=== PATIENT | female | born 1955 | race Caucasian/White ===

== ENCOUNTER 2019-06-22 05:01 | Emergency (ER) | payer BC ==
[~2019-06-22] VITALS: Ht 154.9 cm; Wt 65.3 kg
[2019-06-22 05:04] VITALS: BP 122/81
--- NOTE | 2019-06-22 05:09 | NUR ---
PT AMBULATED TO BED #7
[2019-06-22] MEDS ORDERED: KETOROLAC 60 MG/2 ML VIAL IM ONE (05:20)
--- NOTE | 2019-06-22 05:22 | NUR ---
64 Y/O C/O FREED, N,V, X WEDNESDAY. HAD 4 VOMITTING EPISODES TOTAL. PT RATES FREED 01/10 AND DESCRIBES IT PRESSURE, AND PULSATING. A & O X4. PERRLA 3MM BRISK. STEADY GAIT. ABD IS SOFT, ROUND, NONTENDER, ACTIVE BS. VSS. NKA. PMH: BREAST CANCER.
--- NOTE | 2019-06-22 05:22 | NUR ---
DR ROYAL AT BEDSIDE TO EVAL PT.
--- NOTE | 2019-06-22 05:22 | NUR ---
PMH: RT LYPHM NODE REMOVAL. NO BLOOD DRAWS OR BP ON RT ARM.
[2019-06-22 06:33] VITALS: BP 107/70
== END 2019-06-22 06:33 | disposition home or self-care (01) ==
LOC: MED 05:01
DX: R51 Headache (principal); R03.0 Elevated blood-pressure reading, without diagnosis of hypertension; R50.9 Fever, unspecified
CPT/HCPCS: 96372; 99283; J1885